=== PATIENT | female | born 1950 | race Caucasian/White ===

== ENCOUNTER 2019-02-01 03:51 | Emergency (ER) | payer MEDICARE, BC ==
[2019-02-01 04:11] LABS: #Eosinphils 0.1 thou/uL (0.0-0.7); #Lymphocytes 1.7 thou/uL (1.20-3.40); #Monocytes 0.4 thou/uL (0.11-0.59); #Neutrophils 2.1 thou/uL (1.40-6.50); %Basophils 0.9 % (0.0-1.0); %Eosinophils 2.1 % (0.0-10.0); %Lymphocytes 39.6 % (21.0-51.0); %Monocytes 8.9 % (0.0-10.0); %Neutrophils 48.6 % (42.0-75.0); Hemoglobin 11.7 g/dL (12.0-16.0); Mean Corpuscular HGB CONC 33.4 g/dL (32.0-36.0); Mean Platelet Volume 9.6 fL (7.4-10.4); Platelet Count 113 thou/uL (130-400); RBC Distribution Width 13.1 % (11.5-14.5); Red Blood Cell (RBC) Count 3.77 mill/uL (4.20-5.40); White Blood Cell (WBC) Count 4.4 thou/uL (4.8-10.8)
[2019-02-01 04:25] LABS: ALT (SGPT) 9 U/L (8-55); AST (SGOT) 13 U/L (5-34); Albumin 3.8 g/dL (3.4-4.8); Alkaline Phosphatase 79 U/L (40-150); Anion Gap 11 mmol/L (10-20); BUN (Urea Nitrogen) 22 mg/dL (9.8-20.1); Bilirubin, Total 0.8 mg/dL (0.2-1.2); CK (CPK) 26 U/L (29-168); Calc. Creatinine Clearance 0 mL/min (70-130); Calcium 9.1 mg/dL (7.8-10.44); Carbon Dioxide 24 mmol/L (23-31); Chloride 106 mmol/L (98-107); Estimated GFR-MDRD Greater than 90; Globulin 3.5 g/dL (2.4-3.5); Glucose 114 mg/dL (80-115); Lipase 45 U/L (8-78); Potassium 3.3 mmol/L (3.5-5.1); Protein, Total 7.3 g/dL (6.0-8.3); Sodium 138 mmol/L (136-145)
[2019-02-01 04:26] LABS: Bilirubin Negative (Negative); Blood, Urine Negative (Negative); Clarity CLOUDY (Clear); Glucose, Urine (Dipstick) Negative (Negative); Leukocyte Negative (Negative); Nitrite Negative (Negative); Protein, Urine (Dipstick) Negative (Neg-Trace); Specific Gravity, Urine 1.006 (1.002-1.036); Urobilinogen 0.2 mg/dL (0.2-1.0)
--- NOTE | 2019-02-01 07:22 | CT ---
CT OF THE BRAIN WITHOUT CONTRAST: Date: 02/01/19 INDICATION: History of dizziness, diaphoresis, and nausea. COMPARISON: None. FINDINGS: There is slight prominence of the CS space underlying the right posterior inferior aspect of the righ t cerebellar hemisphere. This may be related to mild cerebellar atrophy or a small arachnoid cyst. Ba silar cisterns are patent. Septum pellucidum and third ventricle are midline. Skull and extracranial soft tissues appear within normal limits. No acute infarct, hemorrhage or hydrocephalus present. IMPRESSION: No acute intracranial abnormality demonstrated. POS: BH
[2019-02-01] MEDS ORDERED: Metoclopramide HCl 10 MG/2 ML VIAL ONE (07:29)
[2019-02-01] MEDS ORDERED: Meclizine HCl 25 MG TAB ONE (07:29)
--- NOTE | 2019-02-01 08:09 | RAD ---
PORTABLE CHEST: Date: 02/01/19 PROVIDED CLINICAL HISTORY: Nausea and vomiting. FINDINGS: Comparison with 04/23/17. Cardiac and mediastinal silhouette is within normal limits. No focal consolidation, pleural fluid, or pneumothorax apparent. IMPRESSION: No evidence for an acute cardiopulmonary process. POS: OFF
== END 2019-02-01 08:54 | disposition home or self-care (01) ==
LOC: ERS 03:51
DX: R42 Dizziness and giddiness (principal); I10 Essential (primary) hypertension; Z79.899 Other long term (current) drug therapy; Z79.82 Long term (current) use of aspirin
CPT/HCPCS: 70450; 71045; 80053; 81003; 82550; 83690; 84484; 85025; 93005; 94760; 96365; J2765

== ENCOUNTER 2021-03-17 08:41 | Inpatient (IN) | payer MEDICARE, BC ==
[2021-03-17 09:27] LABS: #Eosinphils 0.1 thou/uL (0.0-0.7); #Lymphocytes 1.4 thou/uL (1.20-3.40); #Monocytes 0.5 thou/uL (0.11-0.59); #Neutrophils 4.7 thou/uL (1.40-6.50); %Eosinophils 1.2 % (0.0-10.0); %Lymphocytes 20.6 % (21.0-51.0); %Neutrophils 70.2 % (42.0-75.0); Hemoglobin 12.7 g/dL (12.0-16.0); Mean Corpuscular HGB CONC 32.8 g/dL (32.0-36.0); Mean Corpuscular Hemoglobin 30.4 pg (27.0-31.0); Mean Corpuscular Volume 92.7 fL (78.0-98.0); Mean Platelet Volume 8.1 fL (7.4-10.4); Platelet Count 178 thou/uL (130-400); RBC Distribution Width 12.7 % (11.5-14.5); Red Blood Cell (RBC) Count 4.18 mill/uL (4.20-5.40); White Blood Cell (WBC) Count 6.6 thou/uL (4.8-10.8)
[2021-03-17 09:55] LABS: ALT (SGPT) 12 U/L (8-55); AST (SGOT) 15 U/L (5-34); Alkaline Phosphatase 93 U/L (40-110); Anion Gap 14 mmol/L (10-20); BUN (Urea Nitrogen) 18 mg/dL (9.8-20.1); Bilirubin, Total 0.6 mg/dL (0.2-1.2); Calc. Creatinine Clearance 0 mL/min (70-130); Calcium 9.1 mg/dL (7.8-10.44); Carbon Dioxide 23 mmol/L (23-31); Chloride 105 mmol/L (98-107); Globulin 3.8 g/dL (2.4-3.5); Glucose 111 mg/dL (80-115); Potassium 3.9 mmol/L (3.5-5.1); Protein, Total 7.8 g/dL (5.8-8.1); Sodium 138 mmol/L (136-145)
[2021-03-17] MEDS ORDERED: Lisinopril 10 MG TAB ONE (10:54)
[2021-03-17] MEDS ORDERED: Nitroglycerin 2% Ointment 1 INCH/1 GM Packet ONE (10:54)
[2021-03-17 13:44] VITALS: BMI 22.4
[2021-03-17] MEDS ORDERED: Ondansetron PF 4 MG/2 ML Vial IVP PRN (13:52)
[2021-03-17] MEDS: hydrALAZINE 20 MG/ML VIAL SLOW IVP PRN (14:14)
[2021-03-17] MEDS ORDERED: Amlodipine 10 MG TAB PO SCH (15:00)
[2021-03-17] MEDS ORDERED: cloNIDine 0.1 MG TAB PO PRN (15:01)
[2021-03-17] MEDS: Acetaminophen 325 MG TAB PO PRN (21:01)
[2021-03-18 01:03] LABS: SARS-CoV-2 PCR NAA for Saliva Not Detected (NotDetected)
[2021-03-18] MEDS: hydrALAZINE 20 MG/ML VIAL SLOW IVP PRN ×2 (01:14→11:26)
[2021-03-18] MEDS: Acetaminophen 325 MG TAB PO PRN ×2 (02:27→08:21)
[2021-03-18 05:40] LABS: #Monocytes 0.5 thou/uL (0.11-0.59); #Neutrophils 9.1 thou/uL (1.40-6.50); %Basophils 0.3 % (0.0-1.0); %Eosinophils 0.3 % (0.0-10.0); %Lymphocytes 9.2 % (21.0-51.0); %Monocytes 4.8 % (0.0-10.0); %Neutrophils 85.5 % (42.0-75.0); Hemoglobin 13.9 g/dL (12.0-16.0); Mean Corpuscular HGB CONC 33.8 g/dL (32.0-36.0); Mean Corpuscular Hemoglobin 31.1 pg (27.0-31.0); Mean Platelet Volume 8.5 fL (7.4-10.4); Platelet Count 199 thou/uL (130-400); RBC Distribution Width 12.6 % (11.5-14.5); Red Blood Cell (RBC) Count 4.46 mill/uL (4.20-5.40); White Blood Cell (WBC) Count 10.6 thou/uL (4.8-10.8)
[2021-03-18 06:00] LABS: Anion Gap 15 mmol/L (10-20); BUN (Urea Nitrogen) 15 mg/dL (9.8-20.1); Calc. Creatinine Clearance 93 mL/min (70-130); Calcium 9.5 mg/dL (7.8-10.44); Carbon Dioxide 24 mmol/L (23-31); Chloride 103 mmol/L (98-107); Glucose 117 mg/dL (80-115); Potassium 3.2 mmol/L (3.5-5.1); Sodium 139 mmol/L (136-145)
[2021-03-18] MEDS: Timolol 0.5% Ophth Soln 5 ml Bottle EA EYE SCH ×2 (08:16→21:26)
[2021-03-18] MEDS: cloNIDine 0.2 MG TAB PO SCH ×3 (08:21→21:21)
[2021-03-18] MEDS: Aspirin Chewable 81 MG TAB PO SCH (08:22)
[2021-03-18] MEDS: Lisinopril 20 MG TAB PO SCH ×2 (08:22→21:21)
[2021-03-18] MEDS: Sodium Chloride 5% Opth 15 ML BOT EA EYE SCH ×2 (08:23→21:23)
[2021-03-18] MEDS: Enoxaparin Sodium 40 MG/0.4 ML SYRINGE SC SCH (08:24)
[2021-03-18] MEDS ORDERED: BIOTIN 1 MG PO PRN (08:59)
[2021-03-18] MEDS ORDERED: CALC PO SCH (09:00)
[2021-03-18] MEDS ORDERED: Amlodipine 5 MG TAB PO SCH (09:00)
[2021-03-18] MEDS ORDERED: B6 PO SCH (09:00)
[2021-03-18] MEDS ORDERED: [UNRECOGNIZED DRUG - OTHER] PO SCH (09:00)
[2021-03-18] MEDS ORDERED: MANGAN PO SCH (09:00)
[2021-03-18] MEDS ORDERED: MAGNES PO SCH (09:00)
[2021-03-18] MEDS ORDERED: D3 PO SCH (09:00)
[2021-03-18] MEDS: Multivitamin W/ Minerals 1 TAB PO SCH (09:24)
[2021-03-18] MEDS: Polyethylene Glycol OPTH DROP 15 ML BOT EA EYE SCH ×4 (09:24→21:26)
[2021-03-18] MEDS: Cholecalciferol 1,000 UNITS (25 MCG) TAB PO SCH (09:24)
[2021-03-18] MEDS: Hydrocortisone 1% Cream 30 GM TUBE TOP SCH ×2 (09:38→21:21)
[2021-03-18] MEDS ORDERED: Calcium Polycarbophil 625 MG TAB PO SCH (18:45)
[2021-03-19] MEDS: hydrALAZINE 20 MG/ML VIAL SLOW IVP PRN (01:21)
[2021-03-19] MEDS: Acetaminophen 325 MG TAB PO PRN (02:26)
[2021-03-19] MEDS ORDERED: Levothyroxine Sodium 112 MCG TAB PO SCH (06:00)
[2021-03-19] MEDS ORDERED: Amlodipine 10 MG TAB PO SCH (09:00)
[2021-03-19] MEDS ORDERED: Potassium Chloride 20 MEQ TAB PO SCH (09:00)
[2021-03-19] MEDS: Multivitamin W/ Minerals 1 TAB PO SCH (09:34)
[2021-03-19] MEDS: Aspirin Chewable 81 MG TAB PO SCH (09:35)
[2021-03-19] MEDS: cloNIDine 0.2 MG TAB PO SCH (09:35)
[2021-03-19] MEDS: Cholecalciferol 1,000 UNITS (25 MCG) TAB PO SCH (09:36)
[2021-03-19] MEDS: Enoxaparin Sodium 40 MG/0.4 ML SYRINGE SC SCH (09:37)
[2021-03-19] MEDS: Polyethylene Glycol OPTH DROP 15 ML BOT EA EYE SCH (09:40)
[2021-03-19] MEDS: Sodium Chloride 5% Opth 15 ML BOT EA EYE SCH (09:41)
[2021-03-19] MEDS: Hydrocortisone 1% Cream 30 GM TUBE TOP SCH (09:42)
[2021-03-19] MEDS: Timolol 0.5% Ophth Soln 5 ml Bottle EA EYE SCH (09:42)
[2021-03-19] MEDS: Lisinopril 20 MG TAB PO SCH (09:46)
[2021-03-19 11:11] VITALS: BP 158/89
[2021-03-19 11:40] VITALS: TEMP 98.1
== END 2021-03-19 12:47 | disposition home or self-care (01) | DRG 312 ==
LOC: ERS 08:41 → 2SE 11:18
PROVIDERS: ADMIT Internal Medicine; ATTEND Internal Medicine
DX: R55 Syncope and collapse (principal); R00.1 Bradycardia, unspecified; T46.1X5A Adverse effect of calcium-channel blockers, initial encounter; Z20.822 Contact with and (suspected) exposure to COVID-19; E87.6 Hypokalemia; I10 Essential (primary) hypertension; E03.9 Hypothyroidism, unspecified; H40.9 Unspecified glaucoma; Z88.0 Allergy status to penicillin; Z88.1 Allergy status to other antibiotic agents; Z88.2 Allergy status to sulfonamides; Z79.82 Long term (current) use of aspirin; Z79.899 Other long term (current) drug therapy; Z79.890 Hormone replacement therapy
CPT/HCPCS: 36415; 36416; 71045; 80048; 80053; 84484; 85025; 87635; 93005; J0360; J1650; J2405; U0003; U0005